=== PATIENT | male | born 2000 | race African-American/Black ===

== ENCOUNTER 2021-03-05 10:53 | Emergency (ER) | payer BC, SELFPAY ==
--- NOTE | ~2021-03-05 | XR_ITS ---
EXAMINATION: XR chest 2V DATE: 03/05/2021 11:37 INDICATION: Right upper chest pain, shortness of breath TECHNIQUE: PA and lateral views of the chest are obtained. COMPARISON: None available FINDINGS: The lungs are free of acute opacities. There is no pleural effusion or pneumothorax. The ca rdiomediastinal silhouette is normal. The visualized bones and soft tissues are unremarkable. IMPRESSION: 1. No acute cardiopulmonary abnormality. Reviewed, dictated and finalized at location A.
[2021-03-05 10:59] VITALS: BP 138/79; PULSE 61; RESP 19; TEMP 36.6; O2SAT 100
--- NOTE | 2021-03-05 11:01 | ECG_ITS ---
Measurements Intervals [place] Rate: 61 P: 68 NH: 173 QRS: 11 QRSD: 121 T: 30 QT: 396 QTc: 402 Interpretive Statements SINUS RHYTHM RIGHT BUNDLE BRANCH BLOCK BASELINE ARTIFACT- II, III, AVR, AVF, V1-V6 ABNORMAL ECG Electronically Signed On 03-05-2021 14:28:22 CDT by Reagan Peterson D.O.
[2021-03-05 11:30] LABS: Basophils Percent Auto 0.6 % (0.2-1.2); Eosinophils Absolute Auto 0.1 K/mm3 (0-0.3); Eosinophils Percent Auto 1.3 % (0-4.4); Hematocrit 44.8 % (42.0-52.0); Hemoglobin 15.8 g/dL (14.0-18.0); Immature Granulocyte Absolute 0.01 K/mm3 (0.00-0.031); Immature Granulocyte Percent A 0.2 % (0-0.5); Lymphocytes Absolute Auto 1.49 K/mm3 (0.9-3.2); Lymphocytes Percent Auto 31.2 % (18.3-44.2); Mean Corpuscular HGB Conc 35.3 g/dl (32-36); Mean Corpuscular Volume 87.8 fl (80-100); Mean Platelet Volume 11.5 fl (7.4-10.4); Monocytes Absolute Auto 0.4 K/mm3 (0.1-0.6); Monocytes Percent Auto 7.5 % (2.6-8.5); Neutrophils Absolute Auto 2.8 K/mm3 (1.3-6.7); Neutrophils Percent Auto 59.2 % (45.5-73.1); Platelet Count Result 178 k/mm3 (150-375); Red Cell Distribution Width 11.8 % (11.5-14.5); White Blood Count 4.8 K/mm3 (4.5-10.0)
[2021-03-05 11:40] LABS: Partial Thromboplastin Time 28.3 SECONDS (22.3-36.8); Prothrombin Time 14.1 Seconds (11.1-14.7)
[2021-03-05 11:43] LABS: Alanine Aminotransferase 12 U/L (4-50); Alkaline Phosphatase 56 U/L (38-126); Anion Gap 5 mmol/L (8-16); Aspartate Amino Transferase 33 U/L (17-59); Blood Urea Nitrogen 21 mg/dL (9-20); CRP < 0.5 mg/dL (<1.0); Calcium 9.8 mg/dL (8.4-10.2); Carbon Dioxide 32 mmol/L (22-30); Chloride 103 mmol/L (98-107); Estimated Glomerular Filt Rate > 60; Glucose 89 mg/dL (75-110); Potassium 3.5 mmol/L (3.4-5.0); Sodium 140 mmol/L (137-145)
[2021-03-05 11:45] LABS: D Dimer 0.27 ug/mL (<0.48)
[2021-03-05 11:51] LABS: Troponin I < 0.012 ng/mL (0.000-0.034)
--- NOTE | 2021-03-05 12:08 | ED.CHESTPAIN ---
HPI - Chest Pain General Chief Complaint: Shortness of Breath/Dyspnea Stated Complaint: SOB CHEST TIGHT X3WK Time Seen by Provider: 03/05/21 10:59 Source: patient and RN notes reviewed Mode of arrival: ambulatory Limitations: no limitations History of Present Illness HPI narrative: This is a 20 year old male who presents for evaluation of chest tightness. He has been having intermittent right chest tightness intermittent for 3 weeks. He states his pain is random but he does notice it more with sitting up and stretching. He states he came to ER today because he felt lightheaded today after leaning over at work. He reports intermittent sob but he denies any today. He denies chest pain. He denies nausea, vomiting, fever, sore throat, cough, runny nose. Denies signs of DVT. Related Data Home Medications Medication Instructions Recorded Confirmed No Home Medications 03/05/21 03/05/21 Allergies Allergy/AdvReac Type Severity Reaction Status Date / Time No Known Allergies Allergy Verified 03/05/21 12:14 Review of Systems Review of Systems: All systems reviewed & are unremarkable except as noted in HPI and below PMFSH Past Medical History Medical History (Updated 03/05/21 @ 13:47 by Cara Palacios MD) Patient denies medical problems Surgical History Surgical History (Updated 03/05/21 @ 12:10 by Cara Palacios MD) No pertinent past surgical history Social History Social History (Updated 03/05/21 @ 12:10 by Cara Palacios MD) Smoking status: Never smoker Alcohol use details: social Substance use: current Substance use type: marijuana Last use: daily marijuana use Exam Const: General: no acute distress and alert Orientation/consciousness: patient oriented x3 HENMT: Head: normocephalic and atraumatic Eyes: Pupils: Equal, round and reactive pupils present EOM: EOMs intact bilaterally Chest: Chest palpation & inspection: tenderness costochondral junction (right) Resp: Effort & Inspection: normal respiratory effort and no retractions Auscultation: clear to auscultation bilaterally Cardio: Rate: regular rate Rhythm: regular rhythm Heart sounds: no murmurs GI: GI Palp: Yes Soft to palpation, No Tenderness to palpation present (GI) and No Guarding due to palpation present (GI) Auscultation: normal bowel sounds Back/Spine/Pelvis: Back: no CVA tenderness Skin: General skin exam: normal color Rashes: no rashes Neuro: General: patient oriented x3, moves all extremities and CN's II-XI intact bilaterally Extrem: General: normal to inspection Psych: Mental Status: mental status grossly normal Affect: normal affect Course Reevaluation(s) Reevaluation #1: I Discussed with patient that labs were unremarkable other than elevated bun. HE was given IVF. Discharge instruction and plans were told to patient. HE will follow up with his PCP. Date: 03/05/21 Time: 13:44 Vital Signs Vital signs: Vital Signs Temperature 97.8 F 03/05/21 10:59 Pulse Rate 61 03/05/21 10:59 Respiratory Rate 19 03/05/21 10:59 Blood Pressure 138/79 03/05/21 10:59 Pulse Oximetry 100 03/05/21 10:59 Temperature 97.8 F 03/05/21 10:59 Pulse Rate 56 L 03/05/21 14:00 Respiratory Rate 18 03/05/21 14:00 Blood Pressure 123/72 03/05/21 14:00 Pulse Oximetry 100 03/05/21 14:00 MDM - Chest Pain Lab Data Attestation: I reviewed the patient's lab results. Result diagrams: 03/05/21 11:24 03/05/21 11:24 Labs: Lab Results 03/05/21 03/05/21 03/05/21 Range/Units 11:24 11:24 11:24 WBC 4.8 (4.5-10.0) K/mm3 RBC 5.10 (4.6-6.20) M/mm3 Hgb 15.8 (14.0-18.0) g/dL Hct 44.8 (42.0-52.0) % MCV 87.8 (80-100) fl MCH 31.0 (26-34) pg MCHC 35.3 (32-36) g/dl RDW 11.8 (11.5-14.5) % Plt Count 178 (150-375) k/mm3 MPV 11.5 H (7.4-10.4) fl Immature Gran % (Auto) 0.2 (0-0.5) % Neut
[2021-03-05] MEDS: KETOROLAC 15 MG/ML VIAL (*BKC) IV PUSH (12:15)
[2021-03-05] MEDS: SODIUM CHLORIDE 0.9% IV 1,000 ML 999 ML IV CONT (12:15)
[2021-03-05 12:16] VITALS: BP 125/79; PULSE 61; RESP 15; O2SAT 100
[2021-03-05 13:09] LABS: Amphetamine Screen Urine Negative (Negative); Barbiturate Screen Urine Negative (Negative); Benzodiazepines Screen Urine Negative (Negative); Cannabinoid Screen Urine Positive (Negative); Cocaine Screen Urine Negative (Negative); Methadone Screen Urine Negative (Negative); Opiate Screen Urine Negative (Negative); Phencyclidine Screen Urine Negative (Negative)
[2021-03-05 13:32] VITALS: BP 115/96; PULSE 63
[2021-03-05 13:35] VITALS: BP 114/78; PULSE 59
[2021-03-05 13:36] VITALS: BP 118/95; PULSE 75
[2021-03-05 14:00] VITALS: BP 123/72; PULSE 56; RESP 18; O2SAT 100
== END 2021-03-05 14:12 | disposition home or self-care (01) ==
PROVIDERS: Emergency Provider General Practice
DX: R07.89 Other chest pain (principal); I45.10 Unspecified right bundle-branch block
CPT/HCPCS: 36415; 71046; 80053; 80307; 83735; 84484; 85025; 85380; 85610; 85730; 86140; 93005; 96361; 96374; 99284; J1885; J7030